=== PATIENT | female | born 1970 | race Caucasian/White ===

== ENCOUNTER 2019-10-13 15:45 | Emergency (ER) | payer MEDICAID, OTHER ==
[~2019-10-13] VITALS: Ht 157.5 cm; Wt 68.0 kg
--- NOTE | 2019-10-13 15:55 | NUR ---
PT BROUGHT HERE BY [facility] FROM [facility] PER EMS REPORT PTS INSURANCE NOT ACCEPTED THERE AND SHE IS HERE TO BE PLACED IN U, PT ON LEGAL HOLD ON ARRIVAL. PT EXPLAINED POLICY AND PROCEDURE. ALL BELONGINGS REMOVED FROM PTS PERSON, SISTER TO TAKE ALL BELONGINGS HOME. PT AMBULATED TO WITH STEADY GAIT, UDS COLLECTED AND SENT TO LAB. PT COOPERATIVE WITH STAFF. PT STATES SHE HAS BEEN USING METH AND WOULD LIKE TO STOP, SHE HAS BEEN SUICIDAL WITH PAST ATTEMPT OF "TAKING PILLS" PT STATES SHE CAME CLOSE TO TAKING A "CATTLE TRAQUILIZER" TO END HER LIFE RECENTLY.
[2019-10-13 16:17] LABS: BASOPHILS # (AUTO) 0.04 x10^3/uL (0-0.1); BASOPHILS % (AUTO) 1 % (0-1); EOSINOPHILS # (AUTO) 0.21 x10^3/uL (0-0.4); EOSINOPHILS % (AUTO) 3 % (1-7); LYMPHOCYTES # (AUTO) 1.98 x10^3/uL (1-3.4); LYMPHOCYTES % (AUTO) 28 % (22-44); MD NO; MEAN CORPUSCULAR HEMOGLOBIN 29.7 pg (27.0-34.8); MEAN CORPUSCULAR HGB CONC 33.7 g/dL (32.4-35.8); MEAN CORPUSCULAR VOLUME 88.1 fL (80-100); MEAN PLATELET VOLUME 8.8 fL (7.4-10.4); MONOCYTES # (AUTO) 0.39 x10^3/uL (0.2-0.8); MONOCYTES % (AUTO) 6 % (2-9); NEUTROPHILS % (AUTO) 64 % (42-75); PLATELET COUNT 332 x10^3/uL (130-400); RED BLOOD COUNT 4.95 x10^6/uL (3.82-5.3); RED CELL DISTRIBUTION WIDTH 13.4 % (9.6-15.2)
[2019-10-13 16:28] LABS: ALBUMIN 4.1 g/dL (3.4-5.0); ANION GAP 7 mmol/L (5-15); CALCIUM 9.1 mg/dL (8.5-10.1); CHLORIDE 110 mmol/L (98-107); CREATININE 0.71 mg/dL (0.55-1.02); SALICYLATE LEVEL 3.5 mg/dL (2.8-20.0)
[2019-10-13 16:35] LABS: AMPHETAMINE SCREEN, URINE Negative (Negative); BARBITURATE SCREEN, URINE Negative (Negative); BENZODIAZEPINE SCREEN, URINE Negative (Negative); CANNABINOID SCREEN, URINE Positive (Negative); COCAINE SCREEN, URINE Negative (Negative); METHADONE SCREEN, URINE Negative (Negative); OPIATE SCREEN, URINE Negative (Negative)
--- NOTE | 2019-10-13 18:03 | NUR ---
PACKET FAXED TO [facility]
--- NOTE | 2019-10-13 19:30 | NUR ---
RPT CALLED TO [facility]. PT RTG.
[2019-10-13 20:00] VITALS: BP 149/96
[2019-10-13] MEDS ORDERED: ONDANSETRON 4 MG TABLET PO PRN (21:00)
[2019-10-13] MEDS ORDERED: DOCUSATE 100 MG CAPSULE PO PRN (21:00)
[2019-10-13] MEDS ORDERED: TRAZODONE 50MG TABLET PO PRN (21:00)
[2019-10-13] MEDS ORDERED: BISACODYL 10 MG SUPP PR PRN (21:00)
[2019-10-13] MEDS ORDERED: ACETAMINOPHEN 325 MG TABLET PO PRN (21:00)
[2019-10-13 21:08] LABS: MICROSCOPIC NOT IND
[2019-10-13 21:15] LABS: CULTURE INDICATED? NO
[2019-10-14] MEDS ORDERED: POLYETHYLENE GLYCOL 17 GM PACKET PO SCH (09:00)
== END 2019-10-13 20:16 ==
LOC: ED 16:40 → 3E 18:59 → EDIP 18:59 → UNDOADMIN 18:59 → ED 20:16
DX: R45.851 Suicidal ideations (principal); F32.9 Major depressive disorder, single episode, unspecified; F17.200 Nicotine dependence, unspecified, uncomplicated
CPT/HCPCS: 36415; 80048; 80307; 81003; 82040; 85025; 99285

== ENCOUNTER 2019-10-13 18:55 | Inpatient (IN) | payer MEDICAID ==
[~2019-10-13] VITALS: Ht 157.5 cm; Wt 65.5 kg
[2019-10-13] MEDS ORDERED: BISACODYL 10 MG SUPP PR PRN (19:00)
[2019-10-13] MEDS ORDERED: ONDANSETRON ODT 4 MG PO PRN (19:00)
[2019-10-13] MEDS ORDERED: POLYETHYLENE GLYCOL 17 GM PACKET PO PRN (19:00)
[2019-10-13] MEDS ORDERED: DOCUSATE 100 MG CAPSULE PO PRN (19:00)
[2019-10-13 19:36] LABS: CHOL/HDL RATIO 4.1; LDL/HDL RATIO 2.2 (0.5-3.0)
[2019-10-13] MEDS ORDERED: PLEASE ENTER ALLERGIES MC SCH (22:30)
[2019-10-13] MEDS ORDERED: PLEASE ENTER HEIGHT AND WEIGHT MC SCH (22:30)
[2019-10-13 22:58] VITALS: BP 149/96
[2019-10-14 00:09] VITALS: BP 149/96
[2019-10-14 07:27] VITALS: BP 150/90
[2019-10-14] MEDS: ACETAMINOPHEN 325 MG TABLET PO PRN ×2 (08:18→20:35)
[2019-10-14] MEDS ORDERED: NICOTINE 7 MG/24 HR PATCH.TD24 TD SCH (12:00)
[2019-10-14] MEDS: NICOTINE GUM 2 MG BC PRN (12:38)
[2019-10-14 19:37] VITALS: BP 130/80
[2019-10-14] MEDS: TRAZODONE 50MG TABLET PO PRN (20:35)
[2019-10-15 07:26] VITALS: BP 133/85
[2019-10-15] MEDS: FLUOXETINE HCL 20 MG CAPSULE PO SCH (08:04)
[2019-10-15] MEDS: ACETAMINOPHEN 325 MG TABLET PO PRN (08:04)
[2019-10-15] MEDS: NICOTINE GUM 2 MG BC PRN (13:43)
[2019-10-15 19:58] VITALS: BP 117/78
[2019-10-15] MEDS: NAPROXEN 500 MG TABLET PO PRN (20:23)
[2019-10-15] MEDS: TRAZODONE 50MG TABLET PO PRN (20:32)
[2019-10-16 07:06] VITALS: BP 133/80
[2019-10-16] MEDS: NAPROXEN 500 MG TABLET PO PRN ×2 (08:21→20:23)
[2019-10-16] MEDS: FLUOXETINE HCL 20 MG CAPSULE PO SCH (08:21)
[2019-10-16] MEDS: HYDROXYZINE PAMOATE 50MG CAP PO PRN (17:41)
[2019-10-16 19:27] VITALS: BP 126/81
[2019-10-16] MEDS: TRAZODONE 50MG TABLET PO PRN (20:57)
[2019-10-17 07:51] VITALS: BP 117/76
[2019-10-17] MEDS: NAPROXEN 500 MG TABLET PO PRN ×2 (08:36→20:09)
[2019-10-17] MEDS: FLUOXETINE HCL 20 MG CAPSULE PO SCH (08:36)
[2019-10-17] MEDS: NICOTINE GUM 2 MG BC PRN ×2 (08:47→19:07)
[2019-10-17 19:42] VITALS: BP 128/77
[2019-10-17] MEDS: TRAZODONE 50MG TABLET PO PRN (20:09)
[2019-10-18 07:15] VITALS: BP 130/76
[2019-10-18] MEDS: FLUOXETINE HCL 20 MG CAPSULE PO SCH (08:07)
[2019-10-18] MEDS: NAPROXEN 500 MG TABLET PO PRN ×2 (08:07→20:46)
[2019-10-18] MEDS: NICOTINE GUM 2 MG BC PRN ×2 (13:41→18:18)
[2019-10-18] MEDS ORDERED: HYDROXYZINE PAMOATE 25MG CAP ONE (19:38)
[2019-10-18] MEDS: HYDROXYZINE PAMOATE 50MG CAP PO PRN (19:41)
[2019-10-18 19:53] VITALS: BP 146/90
[2019-10-18] MEDS: TRAZODONE 50MG TABLET PO PRN (20:46)
[2019-10-19 07:18] VITALS: BP 133/88
[2019-10-19] MEDS: FLUOXETINE HCL 20 MG CAPSULE PO SCH (08:24)
[2019-10-19] MEDS: HYDROXYZINE PAMOATE 50MG CAP PO PRN ×2 (08:24→20:38)
[2019-10-19] MEDS: NAPROXEN 500 MG TABLET PO PRN ×2 (08:24→20:37)
[2019-10-19] MEDS: NICOTINE GUM 2 MG BC PRN ×2 (11:49→20:37)
[2019-10-19] MEDS: ACETAMINOPHEN 325 MG TABLET PO PRN ×2 (13:11→22:29)
[2019-10-19 19:23] VITALS: BP 141/90
[2019-10-19] MEDS ORDERED: HYDROXYZINE PAMOATE 25MG CAP ONE (20:34)
[2019-10-19] MEDS: TRAZODONE 50MG TABLET PO PRN ×2 (20:37→22:29)
[2019-10-20 07:17] VITALS: BP 112/69
[2019-10-20] MEDS: FLUOXETINE HCL 20 MG CAPSULE PO SCH (08:40)
[2019-10-20] MEDS: NAPROXEN 500 MG TABLET PO PRN ×2 (08:40→20:43)
[2019-10-20 19:00] VITALS: BP 148/80
[2019-10-20] MEDS: TRAZODONE 50MG TABLET PO PRN (20:43)
[2019-10-20] MEDS: NICOTINE GUM 2 MG BC PRN (20:43)
[2019-10-20] MEDS: QUETIAPINE 25MG TABLET PO PRN (20:43)
[2019-10-20] MEDS: ACETAMINOPHEN 325 MG TABLET PO PRN (20:43)
[2019-10-21 07:46] VITALS: BP 122/78
[2019-10-21] MEDS: ACETAMINOPHEN 325 MG TABLET PO PRN (08:41)
[2019-10-21] MEDS: NAPROXEN 500 MG TABLET PO PRN ×2 (08:41→20:10)
[2019-10-21] MEDS: FLUOXETINE HCL 20 MG CAPSULE PO SCH (08:41)
[2019-10-21] MEDS: NICOTINE GUM 2 MG BC PRN ×2 (08:47→21:09)
[2019-10-21] MEDS: QUETIAPINE 25MG TABLET PO PRN ×2 (08:47→20:10)
[2019-10-21 19:20] VITALS: BP 127/86
[2019-10-21] MEDS: TRAZODONE 50MG TABLET PO PRN ×2 (20:10→21:29)
[2019-10-22 07:05] VITALS: BP 138/90
[2019-10-22] MEDS: HYDROXYZINE PAMOATE 50MG CAP PO PRN (08:06)
[2019-10-22] MEDS: NICOTINE GUM 2 MG BC PRN (08:06)
[2019-10-22] MEDS: QUETIAPINE 25MG TABLET PO PRN ×2 (08:06→11:40)
[2019-10-22] MEDS: FLUOXETINE HCL 20 MG CAPSULE PO SCH (08:06)
[2019-10-22] MEDS ORDERED: TRAZ50TA66 PO (09:59)
[2019-10-22] MEDS ORDERED: FLUO20CA23 PO (09:59)
[2019-10-22] MEDS ORDERED: QUET25TA7 PO (09:59)
== END 2019-10-22 13:13 | disposition home or self-care (01) | DRG 751 ==
LOC: 3E 22:11
PROVIDERS: ADMIT Psychiatry & Neurology Psychosomatic Medicine; ATTEND Psychiatry & Neurology Psychosomatic Medicine
DX: F33.2 Major depressive disorder, recurrent severe without psychotic features (principal); F15.20 Other stimulant dependence, uncomplicated; F17.210 Nicotine dependence, cigarettes, uncomplicated; F41.9 Anxiety disorder, unspecified; Z88.0 Allergy status to penicillin; Z88.8 Allergy status to other drugs, medicaments and biological substances; Z91.018 Allergy to other foods; Z81.8 Family history of other mental and behavioral disorders
CPT/HCPCS: 36415; 71045; 80061; 93005